=== PATIENT | female | born 1995 | race Caucasian/White ===

== ENCOUNTER → 2021-01-09 10:56 | Observation (INO) ==
[2021-01-08 23:47] LABS: Bacteria,Urine Few per hpf (None-Few); Bilirubin,Urine Negative (Negative); Blood,Urine Moderate (Negative); Clarity,Urine Ex.Turbid (Clear); Color,Urine Yellow (Yellow); Glucose,Urine (UA) Normal (Normal); Ketones,Urine Negative (Negative); Leukocyte Esterase,Urine Large (Negative); Mucus,Urine Few per lpf (None-Few); Nitrite,Urine Negative (Negative); Protein,Urine 50 mg/dL (Neg-Trace); RBC,Urine 15-30 per hpf (0-3); Squamous Epithelial Cell,Urine Many per hpf (None-Few); WBC,Urine 30-50 per hpf (0-3)
[2021-01-09] MEDS: OXcarbazepine 150 MG TABLET PO SCH ×2 (00:39→09:02)
[2021-01-09] MEDS: lamoTRIgine 100 MG TABLET PO SCH ×2 (00:39→09:01)
[2021-01-09 10:38] LABS: Candida DNA DETECTED (Not Detect); Gardnerella DNA DETECTED (Not Detect); Trichomonas DNA Not Detected (Not Detect)
[~2021-01-09 10:56] MED LIST: Acetaminophen 325 MG TABLET PO ONE; Ondansetron 4 MG/2 ML VIAL IVP ONE; Ondansetron 4 MG/2 ML VIAL ONE; Ringers Solution, Lactated 1,000 ML IVC ONE; cefTRIAXone 1,000 MG in 0.9 % Sodium Chloride Mini Bag 100 ML IVPB ONE
== END | disposition home or self-care (01) ==
LOC: 1NENULAB
PROVIDERS: ADMIT Obstetrics & Gynecology; ATTEND Obstetrics & Gynecology

== ENCOUNTER → 2021-01-20 17:30 | Observation (INO) | END | disposition home or self-care (01) | LOC: 1NENULAB | PROVIDERS: ADMIT Obstetrics & Gynecology; ATTEND Obstetrics & Gynecology ==

== ENCOUNTER 2021-01-25 23:48 | Inpatient (IN) ==
[2021-01-26] MEDS: Ringers Solution, Lactated 1,000 ML IVC SCH ×2 (00:10→04:10)
[2021-01-26] MEDS ORDERED: Naloxone 0.4 MG/ML INJ IVP PRN (00:12)
[2021-01-26] MEDS ORDERED: Famotidine 20 MG/2 ML VIAL IVP PRN (00:12)
[2021-01-26] MEDS ORDERED: Azithromycin 500 MG in 0.9 % Sodium Chloride 250 ML IVPB ONE (00:12)
[2021-01-26] MEDS ORDERED: Metoclopramide 10 MG/2 ML VIAL IVP PRN (00:12)
[2021-01-26] MEDS ORDERED: *HR* Nalbuphine 10 MG/ML AMPUL IV PRN (00:12)
[2021-01-26] MEDS ORDERED: Lidocaine 1% 20 ML MDV INFILT PRN (00:12)
[2021-01-26] MEDS ORDERED: Oxytocin 20 units/ LR 1000 mL 20 UNIT/1,000 ML BAG IVC ONE (00:36)
[2021-01-26 00:38] LABS: Basophils % 0.3 %; Eosinophils % 0.4 %; Hemoglobin 11.5 g/dL (11.5-15.4); Immature Granulocytes % 0.6 % (0-4); Lymphocytes # 2.4 K/mcL (0.6-4.6); Mean Corpuscular HGB Conc 32.9 g/dL (31.6-35.5); Mean Corpuscular Hemoglobin 29.6 pg (28.0-33.3); Mean Corpuscular Volume 90.2 fL (83.0-100.0); Mean Platelet Volume 8.8 fL (9.4-12.4); Monocytes % 10.9 %; Neutrophils # 5.5 K/mcL (1.6-8.9); Platelet Count 257 K/mcL (140-400); Red Blood Count 3.88 M/mcL (3.82-4.97); Red Cell Distribution Width 12.3 % (11.5-14.5); Segmented Neutrophils % 60.8 %
[2021-01-26] MEDS: Oxytocin 20 units/ LR 1000 mL 20 UNIT/1,000 ML BAG IVC SCH ×2 (00:55→09:15)
[2021-01-26] MEDS: Ondansetron 4 MG/2 ML VIAL IVP PRN ×2 (00:57→09:50)
[2021-01-26 01:00] LABS: Alanine Aminotransferase 8 Units/L (7-52); Aspartate Amino Transferase 12 Units/L (13-39); BUN/Creatinine Ratio 25 (6-26); Blood Urea Nitrogen 14 mg/dL (6-20); Lactate Dehydrogenase 127 Units/L (140-271); Uric Acid 4.7 mg/dL (2.3-7.6); eGFR For African Americans > 60 (> 60); eGFR For Non-African Americans > 60 (> 60)
[2021-01-26] MEDS ORDERED: Magnesium Sulf 20 gm/SW 500mL 20 GM/500 ML IV.SOLN IVC SCH (01:00)
[2021-01-26] MEDS ORDERED: Calcium Gluconate 1,000 MG/10 ML VIAL ONE (01:13)
[2021-01-26 01:22] LABS: Amphetamine Screen,Urine Negative ng/mL (Cutoff=1000); Barbiturate Screen,Urine Negative ng/mL (Cutoff=200); Benzodiazepines Screen,Urine Negative ng/mL (Cutoff=200); Cannabinoid Screen,Urine Negative ng/mL (Cutoff = 50); Cocaine Screen,Urine Negative ng/mL (Cutoff= 300); Creatinine,Urine 151 mg/dL; Opiate Screen,Urine Negative ng/mL (Cutoff=300); Phencyclidine Screen,Urine Negative ng/mL (Cutoff=25); Protein/Creatinine Ratio,Urine 0.18 mg/mg (0.00-0.20)
[2021-01-26 01:32] LABS: Adenovirus Not Detected (Not Detect); Bordetella Pertussis Not Detected (Not Detect); Chlamydophila pneumoniae Not Detected (Not Detect); Coronavirus 229E Not Detected (Not Detect); Coronavirus HKU1 Not Detected (Not Detect); Coronavirus NL63 Not Detected (Not Detect); Coronavirus OC43 Not Detected (Not Detect); Human Metapneumovirus Not Detected (Not Detect); Human Rhinovirus/Enterovirus Not Detected (Not Detect); Influenza A Subtype 2009 H1 Not Detected (Not Detect); Influenza B Not Detected (Not Detect); Parainfluenza Virus 1 Not Detected (Not Detect); Parainfluenza Virus 2 Not Detected (Not Detect); Parainfluenza Virus 3 Not Detected (Not Detect); Parainfluenza Virus 4 Not Detected (Not Detect); Respiratory Syncytial Virus Not Detected (Not Detect); SARS-CoV-2 Not Detected (Not Detect)
[2021-01-26 01:33] LABS: Mycoplasma pneumoniae Not Detected (Not Detect)
[2021-01-26] MEDS ORDERED: *HR* FentaNYL (PF) 100 MCG/2 ML VIAL EP ONE (03:34)
[2021-01-26] MEDS ORDERED: EPHEDrine 50 MG/ML VIAL IVP PRN (03:34)
[2021-01-26] MEDS ORDERED: Ropivacaine/PF 0.2% 20 ML VIAL EP ONE (03:34)
[2021-01-26] MEDS ORDERED: *HR* FentaNYL (PF) 100 MCG/2 ML VIAL ONE (03:36)
[2021-01-26] MEDS ORDERED: Ropivacaine/PF 0.2% 20 ML VIAL ONE (03:36)
[2021-01-26] MEDS ORDERED: Epidural Premix (fent/bupiv) 110 ML EP SCH (03:45)
[2021-01-26] MEDS ORDERED: EPHEDrine 50 MG/ML VIAL ONE (07:14)
[2021-01-26] MEDS ORDERED: Famotidine 20 MG TABLET PO SCH (09:00)
[2021-01-26] MEDS ORDERED: OXcarbazepine 150 MG TABLET PO SCH (09:00)
[2021-01-26] MEDS ORDERED: lamoTRIgine 100 MG TABLET PO SCH ×2 (09:00→10:53)
[2021-01-26] MEDS ORDERED: Lanolin 7 G OINT...G. TP PRN (10:53)
[2021-01-26] MEDS ORDERED: Oxytocin 20 units/ LR 1000 mL 20 UNIT/1,000 ML BAG IVC SCH (10:53)
[2021-01-26] MEDS ORDERED: Benzocaine/Menthol 56 GM AEROSOL SPRAY TP PRN (10:53)
[2021-01-26] MEDS ORDERED: Ondansetron ODT 4 MG TAB.RAPDIS SL PRN (10:53)
[2021-01-26] MEDS ORDERED: Measles/Mumps/Rubella Vacc 0.5 ML VIAL SQ PRN (10:53)
[2021-01-26] MEDS ORDERED: NON-FORMULARY MEDICATION 1 EACH EACH (Prenatal Vitamin Tablet 1 TAB) PO SCH (10:53)
[2021-01-26] MEDS ORDERED: Rho Immune Globulin 1,500 UNIT SYRINGE IM PRN (10:53)
[2021-01-26] MEDS ORDERED: Sennosides 8.6 MG TABLET PO PRN (10:53)
[2021-01-26] MEDS: Prenatal Vit/FA 1 EACH TABLET PO SCH (11:33)
[2021-01-26] MEDS: Ibuprofen 600 MG TABLET PO SCH ×2 (11:33→19:31)
[2021-01-26] MEDS: Acetaminophen 325 MG TABLET PO SCH ×2 (11:34→19:28)
[2021-01-26] MEDS: lamoTRIgine 100 MG TABLET PO SCH (19:28)
[2021-01-26] MEDS: OXcarbazepine 150 MG TABLET PO SCH (19:31)
[2021-01-27] MEDS: Ibuprofen 600 MG TABLET PO SCH ×3 (01:20→12:11)
[2021-01-27] MEDS: Acetaminophen 325 MG TABLET PO SCH ×2 (04:09→12:11)
[2021-01-27] MEDS ORDERED: Terbutaline 1 MG/ML VIAL SQ ONE (04:34)
[2021-01-27 06:32] LABS: Basophils % 0.4 %; Eosinophils # 0.1 K/mcL (0.0-0.6); Eosinophils % 0.9 %; Hematocrit 29.8 % (35.3-44.9); Immature Granulocytes % 0.3 % (0-4); Lymphocytes # 2.6 K/mcL (0.6-4.6); Mean Corpuscular HGB Conc 33.6 g/dL (31.6-35.5); Mean Corpuscular Hemoglobin 30.2 pg (28.0-33.3); Mean Platelet Volume 9.3 fL (9.4-12.4); Monocytes # 0.6 K/mcL (0.0-1.3); Monocytes % 9.2 %; Neutrophils # 3.5 K/mcL (1.6-8.9); Platelet Count 222 K/mcL (140-400); Red Blood Count 3.31 M/mcL (3.82-4.97); Red Cell Distribution Width 12.5 % (11.5-14.5); Segmented Neutrophils % 51.2 %; White Blood Count 6.8 K/mcL (4.3-11.1)
[2021-01-27 07:29] VITALS: BP 104/72
[2021-01-27] MEDS: lamoTRIgine 100 MG TABLET PO SCH (07:47)
[2021-01-27] MEDS: Prenatal Vit/FA 1 EACH TABLET PO SCH (07:47)
[2021-01-27] MEDS: OXcarbazepine 150 MG TABLET PO SCH (07:48)
[2021-01-27] MEDS ORDERED: Ringers Solution, Lactated 1,000 ML ONE (12:01)
== END 2021-01-27 12:30 | disposition home or self-care (01) | DRG 560 ==
LOC: EMEROOARM 23:48 → 1NENULAB 23:48 → 1NENUOBS 01-26 10:37
PROVIDERS: ADMIT Student in an Organized Health Care Education/Training Program; ATTEND Student in an Organized Health Care Education/Training Program